=== PATIENT | female | born 1940 | race Caucasian/White ===

== ENCOUNTER 2024-02-08 06:14 | Day surgery (SDC) | payer MEDICARE, SELFPAY ==
[2024-02-08 06:50] VITALS: BMI 23.9
[2024-02-08 06:52] VITALS: BMI 23.9
[2024-02-08 07:04] VITALS: BP 155/81
[2024-02-08 09:00] VITALS: BP 135/73
[2024-02-08 09:15] VITALS: BP 140/73
[2024-02-08 09:29] VITALS: BP 140/73
[2024-02-08 09:30] VITALS: BP 144/88
== END 2024-02-08 09:30 | disposition home or self-care (01) ==
LOC: GI 06:14
PROVIDERS: ATTENDING PHYSICIAN Internal Medicine Gastroenterology
DX: K31.7 Polyp of stomach and duodenum (principal); K31.89 Other diseases of stomach and duodenum
CPT/HCPCS: 43254; 43237; 88305